=== PATIENT | female | born 1990 | race American Indian/Alaskan Native ===

== ENCOUNTER 2020-07-29 22:05 | Emergency (ER) | payer MEDICAID ==
[2020-07-29 23:44] LABS: Basophils % (Auto) 0.4 % (0.0-1.8); Eosinophils % (Auto) 0.5 % (0.0-4.3); Hematocrit 36.4 % (30.3-42.9); Lymphocytes # (Auto) 1.5 K/mm3 (1.2-5.4); Lymphocytes % (Auto) 17.5 % (13.4-35.0); Mean Corpuscular HGB Conc 33 % (30-34); Mean Corpuscular Volume 89 fl (79-97); Monocytes # (Auto) 0.9 K/mm3 (0.0-0.8); Monocytes % (Auto) 10.9 % (0.0-7.3); Platelet Count 382 K/mm3 (140-440); Red Blood Count 4.09 M/mm3 (3.65-5.03); Red Cell Distribution Width 16.3 % (13.2-15.2)
--- NOTE | 2020-07-30 02:50 | Ultrasound Report ---
LIMITED OBSTETRICAL ULTRASOUND HISTORY: Vaginal bleeding and abdominal cramping. FINDINGS: A single viable intrauterine is dated 13 weeks 3 days by ultrasound. heart tones are 164 bpm. No bleed is identified. The ovaries are nonvisualized.. No adnexal mass or fluid. Multiple fibroids are present. IMPRESSION: 1. Viable intrauterine dated 13 weeks 3 days. 2. Ovaries not visualized. No adnexal lesion. 3. Uterine fibroids. Signer Name: Lenny Coe MD Signed: 07/30/2020 2:45 AM Workstation Name: [id number]
--- NOTE | 2020-07-30 03:49 | Emergency Department Report ---
ED Female HPI - General Chief complaint: Vaginal Bleeding Stated complaint: VAGINAL BLEEDING Time Seen by Provider: 07/30/20 01:19 Source: patient Mode of arrival: Ambulatory Limitations: No Limitations - History of Present Illness Initial comments: 29-year-old -Citizen Of [place] female sent emerge department complaining of bleeding started around 930 this evening associated with some low back pain. Reports no hematuria or dysuria no fever, chills, sweats. MD Complaint: vaginal bleeding -: Gradual Radiation: other Severity: mild (Low back) Quality: dull Consistency: constant Improves with: none Worsens with: none Are you Now?: Yes Associated Symptoms: vaginal bleeding. denies: nausea/vomiting, fever/chills, headaches, loss of appetite, dysuria - Related Data Allergies Allergy/AdvReac Type Severity Reaction Status Date / Time No Known Allergies Allergy Unverified 07/29/20 22:36 ED Review of Systems ROS: Stated complaint: VAGINAL BLEEDING Other details as noted in HPI Comment: All other systems reviewed and negative ED Past Medical Hx - Past Medical History Previous Medical History?: No - Surgical History Past Surgical History?: No - Social History Smoking Status: Never Smoker Substance Use Type: None ED Physical Exam - General Limitations: No Limitations General appearance: alert, in no apparent distress - Head Head exam: Present: atraumatic, normocephalic - Eye Eye exam: Present: normal appearance - ENT ENT exam: Present: mucous membranes moist - Neck Neck exam: Present: normal inspection - Respiratory Respiratory exam: Present: normal lung sounds bilaterally. Absent: respiratory distress - Cardiovascular Cardiovascular Exam: Present: regular rate, normal rhythm. Absent: systolic murmur, diastolic murmur, rubs, gallop - GI/Abdominal GI/Abdominal exam: Present: soft, normal bowel sounds - Extremities Exam Extremities exam: Present: normal inspection - Back Exam Back exam: Present: normal inspection - Neurological Exam Neurological exam: Present: alert, oriented X3 - Psychiatric Psychiatric exam: Present: normal affect, normal mood - Skin Skin exam: Present: warm, dry, intact, normal color. Absent: rash ED Medical Decision Making - Lab Data Result diagrams: 07/29/20 22:49 - Radiology Data [facility] [address] [place] [address] Ultrasound Report Signed Patient: IRMA PALOMARES MR#: [id number] 1 : 1990 Acct:[id number] Age/Sex: 29 / F ADM Date: 07/29/20 Loc: ED Attending Dr: Ordering Physician: BELLA SPANGLER III, MD Date of Service: 07/29/20 Procedure(s): US OB <= 14 weeks fetus Accession Number(s): [id number] cc: BELLA SPANGLER III, MD LIMITED OBSTETRICAL ULTRASOUND HISTORY: Vaginal bleeding and abdominal cramping. FINDINGS: A single viable intrauterine is dated 13 weeks 3 days by ultrasound. heart tones are 164 bpm. No bleed is identified. The ovaries are nonvisualized.. No adnexal mass or fluid. Multiple fibroids are present. IMPRESSION: 1. Viable intrauterine dated 13 weeks 3 days. 2. Ovaries not visualized. No adnexal lesion. 3. Uterine fibroids. Signer Name: Lenny Coe MD Signed: 07/30/2020 2:45 AM Workstation Name: [id number] Transcribed By: ES Dictated By: Lenny Coe MD Electronically Authenticated By: Lenny Coe MD Signed Date/Time: 07/30/20244 DD/ 2 TD/TT: - Medical Decision Making This patient presents with vaginal bleeding in the first trimester. Differential diagnosis includes ectopic , IUP, threatened/inevitable , alongside with completed . Patient is hemodynamically stable and without a history of coagulopathy or infectious symptoms with exception of urinary tract infection. Doubt ulcer or acute emergent pathology. Ultrasound confirmed early . Critical care attestation.: If time is entered above; I have spent that time in minutes in the direct care of this critically ill patient, excluding procedure time. ED Disposition Clinical Impression: Threatened Disposition: DC-01 TO HOME OR SELFCARE Is pt being admited?: No Does the pt Need Aspirin: No Condition: Stable Instructions: Threatened Miscarriage (ED) Referrals: PRIMARY CARE, [Primary Care Provider] - 3-5 Days [facility] [Provider Group] - 3-5 Days
[2020-07-30 03:54] VITALS: BP 103/72
== END 2020-07-30 03:55 | disposition home or self-care (01) ==
LOC: ED 22:05
DX: O20.0 Threatened abortion (principal); Z3A.13 13 weeks gestation of pregnancy
CPT/HCPCS: 36415; 76801; 84702; 85025; 86900; 86901

== ENCOUNTER 2020-11-11 08:23 | Emergency (ER) | payer MEDICAID ==
[2020-11-11 09:10] VITALS: BP 116/79
--- NOTE | 2020-11-11 12:52 | Emergency Department Report ---
Chief Complaint: Skin Rash Stated Complaint: SKIN BACTERIAL INFECTION Time Seen by Provider: 11/11/20 12:48 - HPI History of Present Illness: Patient is a 29-year-old female presents emergency room with complaints of a skin rash that has been occurring for 6 months. She is not using anything on the face. She states that she is currently and observes receiving OB care and she was advised by her OB doctor that they could not write anything for her. She denies any new soaps, lotions, detergents. She denies any facial swelling, difficulty swallowing, difficulty breathing. No past medical history. No allergies to medications. vss on exam: Non toxic appearing, no acute distress atraumatic, normocephalic normal appearance of the eyes, EOMI, no periorbital edema or ecchymosis moist mucus membranes No respiratory distress, no accessory muscle use A&O x4, no focal neuro deficit skin is warm, dry, the face has multiple small open comedones diffusely, no edema of the face, no erythema Examination appears consistent with acne No signs of facial cellulitis or abscess at this time Discussed mivm-zcm-[id number] treatment and supportive care with patient Patient be referred to sole edge inker machine Discussed the importance of follow-up Discuss strict return precautions Medical screen examination performed there is no threat to life or limb at this time - Exam Vital Signs: Vital Signs 11/11/20 09:09 Temperature 97.9 F Pulse Rate 103 H Respiratory 18 Rate Blood Pressure 116/79 O2 Sat by Pulse 98 Oximetry MSE screening note: Focused history and physical exam performed. ED Disposition for MSE Clinical Impression: Acne Qualifiers: Acne type: unspecified acne Qualified Code(s): L70.9 - Acne, unspecified Disposition: Z-07 MED SCREENING EXAM-LEFT Is pt being admited?: No Does the pt Need Aspirin: No Condition: Stable Instructions: Acne, Vsnw-eq-[id number] Additional Instructions: Please wash your face twice daily with gnjv-txn-nbywucy facial wash such as Cetaphil. Please use pyqz-ypf-tcgnsaj acne medication something that has benzyl peroxide and salicylic acid. Follow-up with a primary care doctor. Follow-up with a sole edge inker machine. Return to emergency room for any new or worsening symptoms. [facility] Address: [address] [place] [address] Referrals: PRIMARY CARE,MD [Primary Care Provider] - 2-3 Days [facility] [Provider Group] - 2-3 Days Time of Disposition: 12:51 Print Language: IRAQI
== END 2020-11-11 12:58 | disposition left against medical advice (07) ==
LOC: ED 08:23
DX: L70.9 Acne, unspecified (principal); Z53.21 Procedure and treatment not carried out due to patient leaving prior to being seen by health care provider